=== PATIENT | female | born 1955 | race Caucasian/White ===

== ENCOUNTER → 2023-06-25 16:35 | Outpatient (REF) | payer MEDICARE, OTHER, SELFPAY | LOC: MRI 3T 16:35 | PROVIDERS: ATTENDING PHYSICIAN Surgery; FAMILY PHYSICIAN Family Medicine | DX: R92.8 Other abnormal and inconclusive findings on diagnostic imaging of breast (principal) | CPT/HCPCS: 77049; A9585 ==

== ENCOUNTER 2023-07-23 02:58 | Inpatient (IN) | payer MEDICARE, OTHER, SELFPAY ==
[2023-07-22 21:02] VITALS: BMI 29.1
[2023-07-22 21:08] VITALS: BP 168/98
[2023-07-22 21:19] LABS: % Basophils 0.7 % (0-2); % Eosinophils 1.3 % (0-6); % Immature Granulocytes 0.3 % (0-0.5); % Lymphocytes 13.2 % (20.5-51.1); % Monocytes 6.9 % (1.7-9.3); % Neutrophils 77.6 % (42.2-75.2); Absolute Basophils 0.1 10^3/uL (0-0.2); Absolute Eosinophils 0.2 10^3/uL (0-0.7); Absolute Immature Granulocytes 0.1 10^3/uL (0-0.05); Absolute Monocytes 1.1 10^3/uL (0.1-0.6); Hematocrit 39.3 % (37.0-47.0); Hemoglobin 13.1 g/dL (12.0-16.0); Mean Corp Hgb Conc. 33.3 g/dL (33.0-37.0); Mean Corpuscular Hgb 27.2 pg (27.0-31.0); Mean Corpuscular Volume 81.7 fL (81.0-99.0); Mean Platelet Volume 10.3 fL (7.4-10.4); Nucleated Red Blood Cells % 0 %; Platelet Count 323 10^3/uL (130-400); Red Blood Cell Count 4.81 10^6/uL (4.20-5.40); Red Cell Dist. Width 16.3 % (11.5-14.5); White Blood Cell Count 15.5 10^3/uL (4.8-10.8)
[2023-07-22 21:45] LABS: ALT (SGPT) 20 U/L (0-35); AST (SGOT) 25 U/L (14-36); Albumin 4.2 g/dl (3.5-5.0); Alkaline Phosphatase 105 U/L (38-126); Blood Urea Nitrogen 16 mg/dl (7-17); Calcium 8.9 mg/dl (8.4-10.2); Carbon Dioxide 27 mmol/L (22-30); Chloride 107 mmol/L (98-107); Glucose 102 mg/dl (70-99); Lipase 142 U/L (23-300); Potassium 4.2 mmol/L (3.5-5.1); Sodium 139 mmol/L (135-145); Total Bilirubin 0.3 mg/dl (0.2-1.3); Total Protein 7.2 g/dl (6.3-8.2); eGFR > 60.00
--- NOTE | 2023-07-22 22:08 | ED.GENMED ---
History of Present Illness
General
Chief Complaint: Abdominal Pain
Source: patient
Time Seen by Provider: 07/22/23 22:08
Travel History
Have you had any contact with someone who has COVID-19?: No
Do you have any symptoms of coronavirus? Fever > 100 degrees, chills, cough, shortness of breath, sore throat, loss of taste or smell, muscle aches, or headache?: No
Past History
Past History
ED Past Medical History: HTN and Hypercholesterolemia
ED Past Surgical History: Gynecological (Tubal ligation), Orthopedic (Bilateral hip replacement) and Other (Breast reduction)
Social History
Tobacco: Non-smoker
Alcohol: None
Drug: None
Personal:
Living: with family
Course
Orders/Labs/Results
Orders:
Orders
07/22/23 21:13
CMP [Comprehensive Metabolic Panel] Urgent
Complete Blood Count/With Diff Urgent
Lipase Urgent
07/22/23 22:22
IV Insert/Care/Rem.- Treatment PRN
STOOL [C difficile Antigen & Toxins] Urgent
RAJESH Source: Feces/Stool
Specimen Description:
Stool Culture Urgent
RAJESH Source: Feces/Stool
Specimen Description:
Iohexol [Omnipaque] See Protocol PO NOW STA
NSS 1000mL Bolus WIDE OPEN 0.9% Sodium Chloride 1000 ml [Nss] 1,000 ml IV BOLUS
07/22/23 22:23
CT Abd/pel W Iv And Oral Contr Urgent
Comment:
Reason For Exam: Abdominal pain/vomiting
Abnormal Lab Results
07/22/23
21:13
WBC 15.5 H 10^3/uL
(4.8-10.8)
RDW 16.3 H %
(11.5-14.5)
Abs Immat Gran (auto) 0.1 H 10^3/uL
(0-0.05)
Absolute Neuts (auto) 12.0 H 10^3/uL
(1.4-6.5)
Absolute Monos (auto) 1.1 H 10^3/uL
(0.1-0.6)
Neutrophils % 77.6 H %
(42.2-75.2)
Lymphocytes % 13.2 L %
(20.5-51.1)
Glucose 102 H mg/dl
(70-99)
07/22/23 21:13
07/22/23 21:13
Vital Signs
Initial and Last Documented VS:
Initial Vital Signs
Temp Pulse Resp BP Pulse Ox
98.2 F 80 24 168/98 98
07/22/23 21:08 07/22/23 21:08 07/22/23 21:08 07/22/23 21:08 07/22/23 21:08
Last Documented Vital Signs
Temp Pulse Resp BP Pulse Ox
98.2 F 80 24 168/98 98
07/22/23 21:08 07/22/23 21:08 07/22/23 21:08 07/22/23 21:08 07/22/23 21:08
ED Attending Note
-
Portions of this chart may have been created with voice recognition software.� Occasional wrong word or��sound alike� substitutions may have occurred due to the inherent limitations of voice recognition software.
Discharge Plan
Interventions
Interventions:
*Risk Screen - Suicide Last Done: 07/22/23 21:08
*Neglect/Abuse Screening Last Done: 07/22/23 21:08
[2023-07-22 22:32] VITALS: BP 140/89
[2023-07-22] MEDS: OMNIPAQUE 50 ML PO (22:44)
[2023-07-22] MEDS: NSS 1000 IV (22:44)
--- NOTE | 2023-07-22 22:51 | ED.GENMED ---
History of Present Illness
General
Chief Complaint: Abdominal Pain
Source: patient
Exam Limitations: none
Time Seen by Provider: 07/22/23 22:08
Travel History
Have you had any contact with someone who has COVID-19?: No
Do you have any symptoms of coronavirus? Fever > 100 degrees, chills, cough, shortness of breath, sore throat, loss of taste or smell, muscle aches, or headache?: No
History of Present Illness
History of Present Illness:
Patient has had a few days of slightly smaller stools. However major symptoms started about 4 PM today with tenesmus mild diarrhea and recurrent vomiting and bloating. Some vague abdominal pain also. No radiation no fever. No travel history. No
one else is ill. No recent antibiotics.
Past History
Past History
ED Past Medical History: HTN and Hypercholesterolemia
ED Past Surgical History: Gynecological (Tubal ligation), Orthopedic (Bilateral hip replacement) and Other (Breast reduction)
Social History
Tobacco: Non-smoker
Alcohol: None
Drug: None
Personal:
Living: with family
Review of Systems
Review of Systems
All Other Systems: Not applicable
Constitutional: Denies fever
Respiratory: Reports no symptoms
Cardiac: Reports no symptoms
Phy Exam
Physical Exam
Physical Exam:
GENERAL: Alert and oriented in no apparent distress
EYE: Orbits normal.
NECK: Supple
CARDIAC: Regular rate and rhythm without any obvious murmurs.
LUNGS: Clear breath sounds,normal
ABDOMEN: Soft, bowel sounds present. Mild to moderate right lower quadrant tenderness. No rebound or guarding no mass or hernia
NEUROLOGICAL: Alert and oriented , grossly non-focal
SKIN: Warm and dry, no rash or lesion, no discoloration, skin intact.
MUSCULOSKELETAL: No edema,no deformity.Good color
PSYCH: Normal and appropriate interaction.
Course
Orders/Labs/Results
Orders:
Orders
07/22/23 21:13
CMP [Comprehensive Metabolic Panel] Urgent
Complete Blood Count/With Diff Urgent
Lipase Urgent
07/22/23 22:22
IV Insert/Care/Rem.- Treatment PRN
STOOL [C difficile Antigen & Toxins] Urgent
RAJESH Source: Feces/Stool
Specimen Description:
Date Specimen was Collected: 07/23/23
Time Specimen was Collected: 00:00
Stool Culture Urgent
RAJESH Source: Feces/Stool
Specimen Description:
Date Specimen was Collected: 07/23/23
Time Specimen was Collected: 00:00
0.9% Sodium Chloride 1000 ml [Nss] 1,000 ml IV BOLUS
Iohexol [Omnipaque] See Protocol PO NOW STA
07/23/23 00:04
UA Reflex to Culture [Urinalysis Reflex To Culture] Urgent
Date Specimen was Collected: 07/23/23
Time Specimen was Collected: 00:01
07/23/23 00:45
CT Abd/pel W Iv And Oral Contr Urgent
Reason For Exam: Abdominal pain/vomiting
07/23/23 01:44
Zosyn 3.375 grams IVPB NOW Piperacillin/Tazo 3.375 Gram [Zosyn] 3.375 gram in 50 ml IV NOW
Abnormal Lab Results
07/22/23
21:13
WBC 15.5 H 10^3/uL
(4.8-10.8)
RDW 16.3 H %
(11.5-14.5)
Abs Immat Gran (auto) 0.1 H 10^3/uL
(0-0.05)
Absolute Neuts (auto) 12.0 H 10^3/uL
(1.4-6.5)
Absolute Monos (auto) 1.1 H 10^3/uL
(0.1-0.6)
Neutrophils % 77.6 H %
(42.2-75.2)
Lymphocytes % 13.2 L %
(20.5-51.1)
Glucose 102 H mg/dl
(70-99)
07/22/23 21:13
07/22/23 21:13
Vital Signs
Initial and Last Documented VS:
Initial Vital Signs
Temp Pulse Resp BP Pulse Ox
98.2 F 80 24 168/98 98
07/22/23 21:08 07/22/23 21:08 07/22/23 21:08 07/22/23 21:08 07/22/23 21:08
Last Documented Vital Signs
Temp Pulse Resp BP Pulse Ox
98.2 F 82 18 130/93 98
07/22/23 21:08 07/23/23 00:29 07/23/23 00:29 07/23/23 00:29 07/23/23 00:29
MDM/Problems Addressed
Differential Diagnosis Includes:
Differential would include colitis, appendicitis, diverticulitis. Workup in progress
*Radiology
Radiology exam reviewed: radiology read reviewed (Colitis/diverticulitis.)
*Pulse Oximetry
Patient hypoxic: no
*Critical Care Note
Total Time (30-74mins, 75-104mins- exclusive of procedures): Not Applicable
Update Note
Update Note:
WBC 15,000. Nontoxic but uncomfortable. Colitis/diverticulitis. Warrants inpatient IV antibiotics and management
ED Attending Note
-
Portions of this chart may have been created with voice recognition software.� Occasional wrong word or��sound alike� substitutions may have occurred due to the inherent limitations of voice recognition software.
Discharge Plan
Departure
Referrals:
Sanjuanita Pavon DO [Family Provider] -
Interventions
Interventions:
*Risk Screen - Suicide Last Done: 07/22/23 21:08
*Neglect/Abuse Screening Last Done: 07/22/23 21:08
ED- Fall Risk Assessment Last Done: 07/23/23 00:38
JE-Jjlnlr-Mcsccxthuk Assessment Last Done: 07/22/23 23:40
[2023-07-23] VITALS (10 sets, daily range): BP systolic 110–146; BP diastolic 62–103; BMI 24.7
[2023-07-23 00:15] LABS: Urine Albumin Negative (Neg - Trace); Urine Bilirubin Negative (Negative); Urine Character Clear (Clear); Urine Color Yellow; Urine Glucose Negative (Negative); Urine Ketone Negative (Negative); Urine Leukocyte Negative (Negative); Urine Nitrite Negative (Negative); Urine Occult Blood Negative (Negative); Urine Urobilinogen Negative (Neg - 1+); Urine pH 6.5 (5.0-9.0)
[2023-07-23] MEDS: ZOSYN 50 IV ×4 (02:00→20:32)
--- NOTE | 2023-07-23 02:12 | HPS.HSE ---
Addendum entered and electronically signed by Rin Davis MD 07/28/23 10:41:
Allergies
Allergy/AdvReac Type Severity Reaction Status Date / Time
No Known Allergies Allergy Verified 07/22/23 21:12
Home Medications
amlodipine 5 mg tablet 5 mg PO HS Blood Pressure 07/23/23
aspirin 81 mg tablet,delayed release 81 mg PO HS Blood Clot Prevention/Tx 07/23/23
cholecalciferol (vitamin D3) 1,250 mcg (50,000 unit) tablet 1,250 mcg PO FR@2200 Supplement 07/23/23
simvastatin 10 mg tablet 10 mg PO HS High Cholesterol 07/23/23
acetaminophen 325 mg tablet 650 mg PO Q4HPRN PRN mild pain/TAY/temp> 100.4F #60 tabs 07/24/23
amoxicillin 875 mg-potassium clavulanate 125 mg tablet 1 tab PO BID Sigmoid diverticulitis #14 tabs 07/24/23
polyethylene glycol 3350 17 gram oral powder packet (HealthyLax) 17 g PO DAILY #30 ea 07/24/23
Original Note:
Family Physician
-
Family Physician: Sanjuanita Pavon
Chief Complaint
-
abd pain
History of Present Illness
67 y/o F, hx of HTN, HLD presents to ER For abdominal pain. Patient reports feeling in usual good health when today she noticed some abdominal distention. She also reports some small pellet like stools passed. She was nauseous, and vomiting x 3 (no
blood). Later she developed bilateral lower abdominal pain, 6/10, bandline without radiation. No fevers but states she felt a bit chilly. Reports poor appetite; last meal was BLT earlier in the day. She also endorses reflux but no other complaints
Medical History
Past Medical History
Past Medical History: Reports HTN and Hypercholesterolemia
Past Surgical History: Reports Other (Gynecological (Tubal ligation), Orthopedic (Bilateral hip replacement) and Other (Breast reduction))
Social History
Tobacco: Non-smoker
Alcohol: None
Drug: None
Personal:
Living: With Family
Family History
Family History: Not pertinent
Allergies / Home Medications
Allergies reflects when Allergies were last updated in [facility].
Home Medications with original date entered in [employer]
Allergy/Medication List:
Allergies
Allergy/AdvReac Type Severity Reaction Status Date / Time
No Known Allergies Allergy Verified 07/22/23 21:12
Review of Systems
-
A 12 point ROS was completed and negative except as noted: Yes
Physical Exam
Vital Signs
Vital Signs
Temp Pulse Resp BP Pulse Ox
98.2 F 82 18 146/92 96
07/22/23 21:08 07/23/23 00:29 07/23/23 00:29 07/23/23 01:54 07/23/23 02:00
Physical Exam
General: No Apparent Distress
HEENT: NormoCephalic and Anicteric
Respiratory: No Wheezes or Rales
Cardiac: S1/S2 and Regular Rhythm
GI: Tender (lower quadrants) and Distended
Neuro: AO x 3
Psych: Calm
Laboratory Results
-
07/22/23 21:13
07/22/23 21:13
Laboratory Results
Total Bilirubin 0.3 mg/dl (0.2-1.3) 07/22/23 21:13
AST 25 U/L (14-36) 07/22/23 21:13
ALT 20 U/L (0-35) 07/22/23 21:13
Alkaline Phosphatase 105 U/L (38-126) 07/22/23 21:13
Lipase 142 U/L (23-300) 07/22/23 21:13
Data Reviewed
-
Diagnostic Radiology: Report Reviewed by me ([facility] report), Discussed with Physician and Discussed with Patient
Lab Data: Labs Reviewed by me and Discussed with Patient
Impression/Plan
-
Assessment:
Colitis vs Diverticulitis
- based off prelim CT. Formal report pending.
- start pain control
- start IV Zosyn
- clears for now
- dietary consult at patient request
Essential HTN
HLD
- awaiting home med rec
DVT ppx: Lovenox
Code: Full
[2023-07-23] MEDS: NSS 1000 IV (03:31)
[2023-07-23 06:34] LABS: Hematocrit 35.5 % (37.0-47.0); Hemoglobin 11.8 g/dL (12.0-16.0); Mean Corp Hgb Conc. 33.2 g/dL (33.0-37.0); Mean Corpuscular Hgb 27.1 pg (27.0-31.0); Mean Corpuscular Volume 81.4 fL (81.0-99.0); Mean Platelet Volume 10.5 fL (7.4-10.4); Platelet Count 260 10^3/uL (130-400); Red Blood Cell Count 4.36 10^6/uL (4.20-5.40); Red Cell Dist. Width 16.1 % (11.5-14.5); White Blood Cell Count 14.5 10^3/uL (4.8-10.8)
[2023-07-23 06:45] LABS: Blood Urea Nitrogen 10 mg/dl (7-17); Calcium 8.3 mg/dl (8.4-10.2); Carbon Dioxide 23 mmol/L (22-30); Chloride 111 mmol/L (98-107); Estimated Creatinine Clearance 76 ml/min; Glucose 101 mg/dl (70-99); Potassium 3.7 mmol/L (3.5-5.1); Sodium 139 mmol/L (135-145); eGFR > 60.00
--- NOTE | 2023-07-23 08:35 | CM ---
Met with patient in ED. She lives with spouse in 3 level home with one step to enter. First floor master bed and bathroom. She is independent in room, walking to bathroom. She does not have any DME.
She has had [facility] in remote past after [facility] in [place].
She has not been to a SNF.
RX: Reji Altman
PCP Sanjuanita Pavon.
PLAN: home no needs.
[2023-07-23] MEDS: ZOSYN IV (08:49)
--- NOTE | 2023-07-23 11:13 | EDRN ---
the pt is resting in stretcher in the lowest position, side rails up x1, call mukherjee within reach, HOB elevated, no s/s of distress, no c/o pain, the pt is able to ambulate to and from the bathroom independently, will continue to monitor the pt closely
--- NOTE | 2023-07-23 13:41 | EDRN ---
this RN called the receiving unit and notified them that paper report was going to be tubed up
--- NOTE | 2023-07-23 13:44 | W.PN.UPDATE ---
Update Note
Progress Note Update
non billable note
CT abdomen pelvis report reviewed. Likely patient has sigmoid diverticulitis.
Colitis less likely as patient does not have diarrhea and also sigmoid colon more likely source of diverticular disease history.
Nonetheless treatment remains the same and patient on IV Zosyn, continue for now
Patient may develop diarrhea from Zosyn and no indication for stool testing.
diet increase to [place] diet. continue IVF/pain control
Miralax from tomorrow.
--- NOTE | 2023-07-23 14:48 | PTCARENOTE ---
pt presents from ED via stretcher. pt is AAO*3, Vss, room air 99%. pt denies any pain, N/V. pt still having diarrhea. pt is oriented to the room. call mukherjee within the reach. continue plan of care.
[2023-07-23] MEDS: LOVENOX 40 MG SC (17:26)
[2023-07-24] MEDS: ZOSYN 50 IV ×2 (02:03→09:22)
[2023-07-24 07:00] VITALS: BP 113/61
[2023-07-24 07:20] LABS: Hematocrit 35.7 % (37.0-47.0); Hemoglobin 11.8 g/dL (12.0-16.0); Mean Corp Hgb Conc. 33.1 g/dL (33.0-37.0); Mean Corpuscular Hgb 26.9 pg (27.0-31.0); Mean Corpuscular Volume 81.5 fL (81.0-99.0); Mean Platelet Volume 10.7 fL (7.4-10.4); Platelet Count 271 10^3/uL (130-400); Red Blood Cell Count 4.38 10^6/uL (4.20-5.40); Red Cell Dist. Width 16.4 % (11.5-14.5); White Blood Cell Count 8.2 10^3/uL (4.8-10.8)
[2023-07-24 08:15] LABS: Blood Urea Nitrogen 13 mg/dl (7-17); Calcium 8.7 mg/dl (8.4-10.2); Carbon Dioxide 26 mmol/L (22-30); Chloride 106 mmol/L (98-107); Estimated Creatinine Clearance 68 ml/min; Glucose 84 mg/dl (70-99); Sodium 140 mmol/L (135-145); eGFR > 60.00
--- NOTE | 2023-07-24 09:06 | W.PN.HOSP.TC ---
Today's Communication/Plan
-
d/c home
Assessment / Plan
Assessment / Plan
# Sigmoid diverticulitis
CT abdomen pelvis report reviewed.� Likely patient has sigmoid diverticulitis.
Colitis less likely as patient does not have diarrhea and also sigmoid colon more likely source of diverticular disease.
Nonetheless treatment remains the same and patient on IV Zosyn, continue for now
No abdominal pain/nausea/vomiting overnight. Remains afebrile. Normal WBC
Discharging patient on 7-day course of oral Augmentin
Instructed patient to follow-up with gastroenterology office within 6 to 8 weeks for possible repeat colonoscopy
#Essential HTN
#HLD
cotninue home meds
DVT ppx: Lovenox
Code: Full
More than 30 minutes spent in discharge including
Final examination of the patient
Summarizing hospital stay
Instructions for continuing care to all relevant caregivers
Preparation of discharge records, prescriptions, and referral forms
Total time spent (in minutes): 36 mins
Anticipated Discharge: Today
Subjective/Interval History
-
Date of Service: July 24, 2023
Patient resting comfortably in bed
Denies excessive abdominal pain/nausea overnight
Remains afebrile
Objective Data
-
Labs:
Laboratory Results
07/24/23
06:28
WBC 8.2
Hgb 11.8 L
Hct 35.7 L
Plt Count 271
Sodium 140
Potassium 4.0
Chloride 106
Carbon Dioxide 26
BUN 13
Creatinine 0.7
Glucose 84
Calcium 8.7
Vital Signs:
Vital Signs
Temp Pulse Resp BP Pulse Ox
98.1 F 79 18 113/61 94
07/24/23 07:00 07/24/23 07:00 07/24/23 07:00 07/24/23 07:00 07/24/23 07:00
I&O
07/23/23 07/24/23 07/25/23
06:59 06:59 06:59
Intake Total 900 / 900
Balance 900 / 900
Review of Systems
-
Respiratory: Reports No Symptoms
Cardiac: Reports No Symptoms
Abdomen/GI: Reports No Symptoms
Physical Exam
-
General: No Apparent Distress and Comfortable
HEENT: Negative Oxygen
Cardiac: Rub
GI: Soft, Nontender and Nondistended
Musculoskeletal: No Edema
Neuro: Awake, Alert, Oriented, No Motor Deficits and Nonfocal/Grossly Intact
Psych: Calm
--- NOTE | 2023-07-24 09:09 | W.DCSUMMARY ---
Discharge Summary
Discharge Data
Date of Admission: 07/23/23
Date of Discharge: 07/24/23
-
Pending Results: No
Hospital Course
Discharging Physician : Dr Tommy Mars
Disposition : Home
Primary care physician : Dr Sanjuanita Pavon
Principal Discharge diagnosis :
Sigmoid diverticulitis
Chronic Discharge diagnosis :
Essential hypertension
Hyperlipidemia
Hospital Course :
Patient is a 67-year-old female with above-mentioned past medical history came to ER for having new onset of abdominal pain and passing small pellet-like stools. Patient was nauseous and had 3 episodes of vomiting before coming to ER. ER patient
had a CT abdomen pelvis which showed possible sigmoid resection colitis versus diverticulitis. Patient did not have any associated diarrhea and with history of constipation likely a diverticulitis episode. Patient was started on IV Zosyn and
monitored in hospital. Patient symptoms resolved within 48 hours and at discharge patient was transition to oral Augmentin therapy. Patient instructed to follow-up with GI in office in 6 weeks to have possible repeat colonoscopy.
Important imaging findings :
None
Procedure findings :
None
Discharge Plan
-
Patient Disposition: Home (Routine Discharge)
Discharge Diagnosis/Procedures: Sigmoid diverticulitis
Condition: Fair
Diet: Low Residue
Activity: No restrictions and With assistance
Driving Restrictions: As prior to admission
Bathing Restrictions: OK to Shower
Referrals:
Sanjuanita Pavon DO [Family Provider] - in one week
Prescriptions:
New
acetaminophen 325 mg Tablet
650 mg PO Q4HPRN PRN (Reason: mild pain/TAY/temp> 100.4F) Qty: 60 0RF
polyethylene glycol 3350 [HealthyLax] 17 gram Powder In Packet
17 g PO DAILY Qty: 30 0RF
amoxicillin-pot clavulanate 875-125 mg tablet
1 tab PO BID Qty: 14 0RF
Continued
simvastatin 10 mg Tablet
10 mg PO HS
amlodipine 5 mg Tablet
5 mg PO HS
aspirin 81 mg Tablet,Delayed Release (Dr/Ec)
81 mg PO HS
cholecalciferol (vitamin D3) 1,250 mcg (50,000 unit) Tablet
1,250 mcg PO FR@2200
Patient Comments:
07/23/2023, per pt., she is struggling to refill this med. at this time.
Discontinued
ibuprofen [Advil] 200 mg Tablet
400 mg PO BIDPRN PRN (Reason: mild pain)
Discharge Orders:
Discharge Patient (As Directed); Ordered 07/24/23
Ordered By: Tommy Mars
[2023-07-24] MEDS: MIRALAX 17 GRAMS PO (09:22)
[2023-07-24] MEDS: FLUSH (NSS) 2 FLUSH IV (09:36)
--- NOTE | 2023-07-24 15:14 | CM ---
CM following re: d/c planning
Chart reviewed
Pt is medically stable for d/c
Pt has no skilled needs noted
Pt will be discharged on 1wk of Augmentin & f/u with GI in 6 to 8 weeks
PLAN: d/c home no needs identified
== END 2023-07-24 12:56 | disposition home or self-care (01) | DRG 392 ==
LOC: 4 EAST ACU 02:58
PROVIDERS: Emergency Medicine; ADMITTING PHYSICIAN Internal Medicine; ATTENDING PHYSICIAN Hospitalist; EMERGENCY PHYSICIAN Emergency Medicine; FAMILY PHYSICIAN Family Medicine
DX: K57.32 Diverticulitis of large intestine without perforation or abscess without bleeding (principal); E78.00 Pure hypercholesterolemia, unspecified; I10 Essential (primary) hypertension; Z96.643 Presence of artificial hip joint, bilateral
CPT/HCPCS: 74177; 80048; 80053; 81003; 83690; 85025; 85027; 87045; 87046; 87324; 87427; 87449; 96361; 96365; 99285; Q9967

== ENCOUNTER → 2023-08-20 15:16 | Outpatient (REF) | payer MEDICARE, OTHER, SELFPAY | LOC: RAD 15:16 | PROVIDERS: ATTENDING PHYSICIAN Family Medicine | DX: E27.8 Other specified disorders of adrenal gland (principal) | CPT/HCPCS: 74170; Q9967 ==

== ENCOUNTER → 2023-09-05 14:26 | Outpatient (REF) | payer MEDICARE, OTHER, SELFPAY | LOC: WDC 14:26 | PROVIDERS: ATTENDING PHYSICIAN Family Medicine | DX: Z12.31 Encounter for screening mammogram for malignant neoplasm of breast (principal); R92.8 Other abnormal and inconclusive findings on diagnostic imaging of breast | CPT/HCPCS: 76642; 77063; 77067 ==

== ENCOUNTER → 2023-11-11 06:19 | Day surgery (SDC) | payer MEDICARE, OTHER, SELFPAY | LOC: GI 06:19 | PROVIDERS: ATTENDING PHYSICIAN Internal Medicine | DX: K57.30 Diverticulosis of large intestine without perforation or abscess without bleeding (principal); Q43.8 Other specified congenital malformations of intestine; Z87.19 Personal history of other diseases of the digestive system | CPT/HCPCS: 45378 ==

== ENCOUNTER → 2024-11-12 07:43 | Outpatient (REF) | payer MEDICARE, OTHER, SELFPAY | LOC: HWRAD 07:43 | PROVIDERS: ATTENDING PHYSICIAN Family Medicine | DX: M81.0 Age-related osteoporosis without current pathological fracture (principal); Z12.31 Encounter for screening mammogram for malignant neoplasm of breast | CPT/HCPCS: 77063; 77067; 77080 ==